=== PATIENT | female | born 1950 | race Caucasian/White ===

== ENCOUNTER 2020-06-12 13:12 | Emergency (ER) | payer OTHER ==
[~2020-06-12] VITALS: Ht 154.9 cm; Wt 77.1 kg
[~2020-06-12 13:12] MED LIST: ADULT LOW DOSE81 MG; ALDACTONE25 MG; LIPITOR; NORCO 5-325 TA1 EACH PO; ZETIA10 MG
[2020-06-12 13:56] LABS: ABSOLUTE NEUTROPHILS 6.3 thou/uL (1.4-8.2); BASOPHILS 0.6 % (0.0-2.0); EOSINOPHILS 0.3 % (0.0-3.0); HEMATOCRIT 39.7 % (37.0-47.0); HEMOGLOBIN 13.6 gm/dL (12.0-15.0); MCH 30.2 pg (26.0-34.0); MCHC 34.4 g/dL (28.0-37.0); MCV 87.7 fL (80.0-100.0); MONOCYTES 6.6 % (1.0-8.0); PLATELET COUNT 261 thou/uL (150-400); POLYS 68.5 % (36.0-66.0); RBC 4.52 mil/uL (4.20-5.00); RDW 12.5 % (10.5-14.5); WBC 9.2 thou/uL (4.0-11.0)
[2020-06-12 14:02] LABS: ANION GAP 12 mmol/L (7-16); BUN 17 mg/dL (7-18); CALCIUM 10.2 mg/dL (8.5-10.1); CHLORIDE 98 mmol/L (98-107); CO2 23 mmol/L (21-32); CREATININE 0.9 mg/dL (0.6-1.0); GLUCOSE 115 mg/dL (74-106); POTASSIUM 3.9 mmol/L (3.5-5.1); SODIUM 133 mmol/L (136-145)
[2020-06-12 14:10] LABS: BE(vivo) 0.5 mmol/L (-2 to +3); HCO3 23.8 mmol/L (22.0-26.0); PCO2 34.3 mmHg (35.0-45.0); pH 7.459 (7.360-7.450); sO2 93.4 % (92.0-98.0)
[2020-06-12 14:12] LABS: ALBUMIN 4.1 g/dL (3.4-5.0); DIRECT BILIRUBIN 0.1 mg/dL (<0.1-0.2); SGOT 20 U/L (15-37); SGPT 32 U/L (14-59); TOTAL BILIRUBIN 0.9 mg/dL (0.2-1.0); TOTAL PROTEIN 8.5 g/dL (6.4-8.2); TROPONIN-I <0.06 ng/mL (<0.06)
--- NOTE | 2020-06-12 15:31 | EKG ---
[address] [employer] [address] ELECTROCARDIOGRAM REPORT Name: SZYMANSKIBERTOT Room #: [facility]..#: [id number] Admission: Attend Phys: Discharge: Date of : 54 Report #: [id number] [facility] ED Test Date: 2020-06-12 Test Time: 14:27:59 Pat Name: LIUDMILA SZYMANSKI Department: Room: Gender: [employer]: ehsan arciniega : 1950 Requested By: Sherwin Etienne Order Number: [id number] MD: Nakul Hernandez Measurements Intervals [place] Rate: 75 P: 27 KS: 141 QRS: 80 QRSD: 90 T: 5 QT: 394 QTc: 441 Interpretive Statements Sinus rhythm Abnormal R-wave progression, late transition No previous ECG available for comparison Electronically Signed On 06-12-2020 15:31:11 [employer] by Nakul Hernandez [email or web address] <ELECTRONICALLY SIGNED> By: Nakul Hernandez MD, [facility] 06/12/20 1531 1427 1427 Nakul Hernandez MD, FACC /EPI
[2020-06-12 15:36] VITALS: BP 166/70
== END 2020-06-12 15:36 | disposition home or self-care (01) ==
LOC: ER 13:12
PROVIDERS: Emergency Medicine
DX: U07.1 COVID-19 (principal); R09.02 Hypoxemia; E78.5 Hyperlipidemia, unspecified; Z79.899 Other long term (current) drug therapy; Z79.82 Long term (current) use of aspirin; Z88.2 Allergy status to sulfonamides; Z88.1 Allergy status to other antibiotic agents; Z88.8 Allergy status to other drugs, medicaments and biological substances